=== PATIENT | male | born 1980 | race Caucasian/White ===

== ENCOUNTER 2016-10-16 12:39 | Emergency (ER) | payer OTHER ==
[~2016-10-16] VITALS: Ht 175.3 cm; Wt 109.1 kg
[~2016-10-16 12:39] MED LIST: CEPH500C PO; CLIN-78 PO; IBUP-1152 PO; MUPI15CR11 TOP; SULF1TAB7 PO
[2016-10-16 13:00] VITALS: BP 132/87; PULSE 79; RESP 12; O2SAT 97
--- NOTE | 2016-10-16 13:07 | ED.REPORT ---
HPI-General Illness Date of Service Oct 16, 2016 ED Provider: History of Present Illness: punched the rear view mirror in the car with his right hand. happened about 2 hours ago. right hand dominant. laceration on 3rd finger at [facility] 2/10. primary care is no one. unknown tdap. Nursing Notes Stated Complaint: RT HAND INJURY Chief Complaint: Extremity Trauma Nursing Notes Reviewed: Yes Allergies: Coded Allergies: sulfamethoxazole (Verified Allergy, Intermediate, Blisters to mouth, 01/24) trimethoprim (Verified Allergy, Intermediate, Blisters to mouth, 01/25/16) Scheduled Cephalexin (Cephalexin) 500 Mg Capsule 500 MG PO QID Clindamycin (Clindamycin) 300 Mg Capsule 300 MG PO QID IBUPROFEN-Expunged Drug, Do Not Renew! (IBUPROFEN-Expunged Drug, Do Not Renew!) 800 Mg Tablet 800 MG PO PRN WITH FOOD Mupirocin Calcium (Mupirocin Cream) 15 Gm Cream..g. 1 APPL TOP BID Sulfamethoxazole/Trimeth 800-160 mg (Bactrim DS) 1 Each Tablet 1 TABLET PO BID General Time Seen by MD: 13:07 Chief Complaint Other (laceration) Hx Obtained From: Patient Sudden in Onset?: Yes Symptom Duration: Since onset Past Medical History Past Medical History Cellulitis Impetigo Denies: Asthma Past Surgical History None reported Smoking History Current Every Day Smoker (4 cig a day for for 4 years), Current Some Day Smoker Social History denies Alcohol Use: "Social" Drug Use: THC Occupation single lives with girlfriend. no work or school at this time 10/16/2016 Ambulatory Status Independent Review of Systems Full Review of Systems Constitutional: Denies: Chills, Fatigue Respiratory: Denies: Dyspnea on exertion GI: Denies: Abdominal pain Musculoskeletal: Reports: Extremity pain, Extremity swelling Skin: Denies Bruising Neurologic: Denies: Abnormal movement Psychiatric: Denies: Agitation Physical Exam Vital Signs Vital Signs Date Time Temp Pulse Resp B/P Pulse Ox O2 Delivery O2 Flow Rate FiO2 10/16/16 14:56 78 20 132/90 98 Room Air 10/16/16 13:00 36.8 79 12 132/87 97 Room Air Initial VS: Reviewed, Vital signs normal General/Constitutional: Well-developed, Well-nourished Head / Eyes: Atraumatic, Normocephalic, PERRL ENT: Mucous membranes moist, Conjunctiva normal, No scleral icterus Neck: Supple, Non-tender, Full range of motion Respiratory: Breath sounds normal, Clear to auscultation, No respiratory distress Cardiovascular: Regular rate & rhythm, Heart sounds normal, Intact distal pulses Abdomen / GI: Soft, Non-tender, No guarding, No rebound, No distention Back: No CVA tenderness Lymphatic: No lymphadenopathy Extremities: Vascular intact, Neuro intact, No swelling, No tenderness Skin: Warm, Dry, No cyanosis Neurologic: Alert, Oriented, Nonfocal Psychiatric: Mood/affect normal, Behavior normal, Normal thought content General/Constitutional: Awake, Alert, No acute distress Head / Eyes: Atraumatic, Normocephalic, PERRL, EOMI ENT: Atraumatic, Airway patent, Mucous membranes moist Respiratory / Chest: Atraumatic, Breath sounds NL, Breath sounds = bilat, No respiratory distress Cardiovascular: Heart rate NL, Regular rhythm, Heart sounds NL, No gallop Interpretation & Diagnostics X-Ray Interpretation Xray Interpretation: PROCEDURE: X-RAY RIGHT HAND, MINIMUM THREE VIEWS ([id number]) INDICATIONS: punched rear view mirror TECHNIQUE: 3 views of the hand(s) acquired. COMPARISON: None. FINDINGS: Bones: No fractures or dislocations. Carpal bones are normally aligned. No suspicious bony lesions. Soft tissues: No suspicious soft tissue calcifications. IMPRESSION: No visualized acute fracture or dislocation. However, if clinical concern and/or pain persist, short interval imaging followup in 7-10 days is recommended, as occult injury cannot be definitively excluded. Dictated by: Kathie Mckeon M.D. on 10/16/2016 at 14:19 Approved by: Kathie Mckeon M.D. on 10/16/2016 at 14:20 Procedures Laceration Management Laceration Management: small flap laceration Time: 14:30 Procedure Performed by: Allied health pract Consent / Setup / Site Prep: Informed consent provided, Consent from patient , Hand hygiene observed, Stand sterile technique Location of Wound: right hand 3rd finger MCP Wound Length: 1 cm Local Anesthesia: Lidocaine 1%, 3cc, 27g needle Digital Block: No Wound Preparation: Normal saline Debridement: None Irrigation: Copious Foreign Body Explore / Removal: Explored for foreign body Repair Skin: ___ O (5), Nylon # Sutures - Skin: 2 Closure Layers: 1 Suture Technique: Simple Post-Procedure / Complications: Antibiotic oint applied, Dressing applied, No complications, Condition improved, Tolerated procedure well, Patient stable Re-Eval/Medical Decision Med Decision/Clinical Course 35 year old male presents for evualation of right hand injury after punching a mirror earlier today. X-ray is negative. Patient with full range of motion. wound is repaired with 2 sutures. No sign of fracture or compartment syndrome Discharge & Departure Primary Impression: Laceration Disposition: Home Patient Instructions: Laceration (ED) Additional Instructions: The x-ray looks good. No sign of foreign body or bony damage. You have full range of motion of your fingers. The wound was repaired with 2 sutures. Use bacitracin to the site daily. Return in 14 days for suture removal. Can use ibuprofen 800 mg 3 times a day as needed for discomfort. Can use hydrocodone 1 at night as needed for severe unrelenting pain. #4 Referrals: Mikayla Nguyễn (PCP) EDSupervising Provider for [facility]: David Briseno MD Attending Statement I saw the patient with the CUT[employer]INE. I agree with the plan and findings as documented above. Small injury to hand, neurovascular exam intact. No evidence of FB on XR or exam. copies to: Mikayla Nguyễn William B MD Oct 16, 2016 13:07 Gabrielle Olivo Oct 16, 2016 13:34
[2016-10-16] MEDS ORDERED: TdaP Vaccine 0.5 mL Inj IM ONE (13:45)
--- NOTE | 2016-10-16 14:21 | DRSVH ---
PROCEDURE: X-RAY RIGHT HAND, MINIMUM THREE VIEWS ([id number]) INDICATIONS: punched rear view mirror TECHNIQUE: 3 views of the hand(s) acquired. COMPARISON: None. FINDINGS: Bones: No fractures or dislocations. Carpal bones are normally aligned. No suspicious bony lesions . Soft tissues: No suspicious soft tissue calcifications. IMPRESSION: No visualized acute fracture or dislocation. However, if clinical concern and/or pain pe rsist, short interval imaging followup in 7-10 days is recommended, as occult injury cannot be defini tively excluded. Dictated by: Kathie Mckeon M.D. on 10/16/2016 at 14:19 Approved by: Kathie Mckeon M.D. on 10/16/2016 at 14:20
[2016-10-16 14:56] VITALS: BP 132/90; PULSE 78; RESP 20; O2SAT 98
== END 2016-10-16 14:57 | disposition home or self-care (01) ==
LOC: SED 12:39
DX: S61.212A Laceration without foreign body of right middle finger without damage to nail, initial encounter (principal); W22.8XXA Striking against or struck by other objects, initial encounter; Y93.9 Activity, unspecified; Y99.9 Unspecified external cause status; F17.210 Nicotine dependence, cigarettes, uncomplicated; Z88.1 Allergy status to other antibiotic agents; Z23 Encounter for immunization